=== PATIENT | female | born 1970 | race Caucasian/White ===

== ENCOUNTER 2016-06-01 22:36 | Emergency (ER) | payer OTHER ==
[~2016-06-01] VITALS: Ht 167.6 cm; Wt 81.8 kg
[2016-06-01 22:39] VITALS: BP 114/72; PULSE 72; RESP 16; O2SAT 96
--- NOTE | 2016-06-01 23:33 | ED.REPORT ---
HPI-Extremity Problem Lower Date of Service Jun 01, 2016 ED Provider: Nancy Gonzales MD Patient is a 46 year old female who presents to the ED with left hip pain after a ground level fall 3 days ago. The patient is able to bear weight on her left leg but states that she can only take small steps. The patient reports pain whenever she tries to move her leg past a certain point. Patient denies any bruising of her hip. Patient states that she "wiped out" after she slipped on a wet floor at work. The patient was seen at Urgent Care following the injury however they were unable to x-ray her hip at that time. She did have an x-ray of her left wrist which was negative. Patient has been taking 800mg Ibuprofen and 10mg Flexeril, with no relief of her symptoms. Patient denies numbness or weakness of her leg. She denies any other injuries. Nursing Notes Stated Complaint: L HIP PAIN Chief Complaint: Extremity Trauma Nursing Notes Reviewed: Yes Allergies: Coded Allergies: doxycycline (Verified Allergy, Unknown, 06/01/16) Uncoded Allergies: PENICILLIN (Allergy, Severe, 06/01/16) EURITHROMYCIN (Allergy, Unknown, 06/01/16) SULFA (Allergy, Unknown, 06/01/16) General Time Seen by MD: 23:11 Chief Complaint Hip injury left Past Medical History Past Medical History none reported Past Surgical History none reported Smoking History Unknown if Ever Smoker Social History Other Social History: Good social support, Local resident Ambulatory Status Independent Review of Systems Musculoskeletal: Reports: Extremity pain, Joint pain Neurologic: Denies: Numbness, Weakness Complete sys rev & neg: except as marked. Physical Exam Physical Exam Notes: Initial Vital Signs Vital Signs (First) Date Time Temp Pulse Resp B/P Pulse Ox O2 Delivery O2 Flow Rate FiO2 06/01/16 22:39 36.3 72 16 114/72 96 Room Air Initial VS: Reviewed Head / Eyes: Atraumatic, Normocephalic, PERRL ENT: Conjunctiva normal, No scleral icterus Neck: Supple, Full range of motion Respiratory: Breath sounds normal, Clear to auscultation, No respiratory distress Cardiovascular: Regular rate & rhythm, Heart sounds normal Abdomen / GI: Soft, Non-tender Upper Extremities: Vascular intact, Neuro intact Skin: Warm, Dry, No cyanosis Neurologic: Alert, Oriented, Nonfocal Psychiatric: Mood/affect normal, Behavior normal, Normal thought content Lower Extremity / Pelvis / MS: Atraumatic (no obvious trauma), Neurologic intact, Vascular intact Left Hip: Positive: ROM reduced..., Tenderness present... (tenderness to palpation lateral aspect of the left hip), Negative: Leg externally rotated, Leg shortened 2+ DP and PT pulses Ankle / Foot: Neurologic intact, Vascular intact Re-Eval/Medical Decision Med Decision/Clinical Course 46-year-old female with no past medical history ear with left hip pain after mechanical fall. Differential diagnosis includes but is not limited to fracture versus dislocation versus sprain versus strain. Patient's x-rays unremarkable. She is taking ibuprofen 800 mg every 8 hours at home. I have asked her to continue to take this for her pain. She is aware and amenable to discharge at this time. She is ambulatory Re-Evaluation/Progress : Time of Eval: 23:55 Patient Status: Condition improved Re-Evaluation/Progress Note: X-ray was negative. Patient understands and agrees with the plan to be discharged home. Discharge instructions and follow-up discussed. All questions were addressed. Return to the ED warnings given. Counseled Regarding: Diagnosis, Need for follow-up, When/why to return to ED Discharge & Departure Impression: Primary Impression: Left hip pain Disposition: Home Discharge Condition All VS Reviewed: Yes Condition: Stable Patient Instructions: Contusion (ED) Additional Instructions: The X-ray of your hip did not show signs of a fracture. Continue taking 800mg Ibuprofen every 8 hours as needed for pain. Take your Flexeril as prescribed. Follow-up with your doctor early next week. If you do not have a primary care physician, you can follow-up at the [facility]. Return to the Emergency Department if you experience worsening hip pain, fever, chest pain, shortness of breath, or any other concerning symptoms. Referrals: [facility] Scribe Attestation Portions of this note were transcribed by Violet Vega. I, Dr. Gonzales personally performed the history, physical exam and medical decision-making; I reviewed and confirmed the accuracy of the information in the transcribed note. Signed by: Poncho Segundo, 06/01/2016 2358 Nancy Gonzales MD Jun 01, 2016 23:33 Violet Vega Jun 01, 2016 23:40
[2016-06-02 00:17] VITALS: BP 114/72; PULSE 72; RESP 16; O2SAT 96
--- NOTE | 2016-06-02 09:00 | DRSVH ---
PROCEDURE: X-RAY PELVIS W/LAT HIP (LT) ([id number]) INDICATIONS: hip pian TECHNIQUE: AP pelvis with lateral view(s) of the left hip(s). COMPARISON: None. FINDINGS: Bones: No fractures or dislocations. Pelvic ring appears intact. No suspicious bony lesions. Soft tissues: The visualized bowel gas pattern is normal. No suspicious soft tissue calcifications. IMPRESSION: No fracture. No osseous lesion. If symptoms and/or clinical suspicion for pathology pers ists, further assessment with repeat radiographs or advanced imaging (e.g. CT, MRI or bone scan) may be helpful for further assessment. Dictated by: Marsha Leiav MD, PhD on 06/02/2016 at 8:58 Approved by: Marsha Leiva MD, PhD on 06/02/2016 at 8:59
== END 2016-06-02 00:18 | disposition home or self-care (01) ==
LOC: SED 22:39
DX: M25.552 Pain in left hip (principal); W01.0XXA Fall on same level from slipping, tripping and stumbling without subsequent striking against object, initial encounter; Y93.89 Activity, other specified; Y92.69 Other specified industrial and construction area as the place of occurrence of the external cause; Y99.0 Civilian activity done for income or pay; Z88.1 Allergy status to other antibiotic agents